=== PATIENT | male | born 1960 | race Caucasian/White ===

== ENCOUNTER 2020-06-16 16:41 | Emergency (ER) | payer MEDICAID, SELFPAY ==
[2020-06-16 16:43] VITALS: BP 155/88; PULSE 79; RESP 18; TEMP 36.8; O2SAT 98; BMI 40.8
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
--- NOTE | 2020-06-16 17:20 | EKG12_ITS ---
Test Reason : TRAUMA Blood Pressure : / mmHG Vent. Rate : 077 BPM Atrial Rate : 077 BPM P-R Int : 182 ms QRS Dur : 100 ms QT Int : 428 ms P-R-T Axes : 051 -20 054 degrees QTc Int : 484 ms Normal sinus rhythm Possible Left atrial enlargement Prolonged QT Abnormal ECG Confirmed by PAULINA RAMIREZ, MAMADOU ([id number]), make up editor JOSE SALAMANCA ([id number]) on 06/17/2020 9:24:05 AM Referred By: MARCELLO Confirmed By:MAMADOU GALLARDO MD
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
[2020-06-16 17:34] LABS: Absolute Lymphocyte Count 1.98 X10^3/uL (0.83-4.51); Absolute Neutrophil Count 4.5 X10^3/uL (2.0-7.7); Basophil# 0.05 X10^3/uL; Basophil% 0.7 % (0-1); Eosinophil# 0.23 X10^3/uL; Eosinophils% 3.1 % (0-5); Hematocrit 44.8 % (40-54); Hemoglobin 14.7 g/dL (13.0-16.5); Lymphocyte # 1.98 X10^3/ul (4.0); Lymphocyte % 26.8 % (19-41); Mean Corp Hgb Conc 32.8 g/dL (32-36); Mean Corpuscular Hgb 29.6 pg (27.0-32.0); Mean Corpuscular Volume 90.1 fL (80-94); Monocyte# 0.59 X10^3/uL; NRBC Flagged by Analyzer 0 % (0-5); Platelet Count 247 K/mm3 (150-450); RBC Distribution Width SD 42.3 fl (35.1-43.9); Red Blood Count 4.97 M/mm3 (4.6-6.2); White Blood Count 7.4 K/mm3 (4.4-11.0)
[2020-06-16 17:42] VITALS: BP 145/77; PULSE 75; RESP 20; O2SAT 97
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
[2020-06-16 18:00] VITALS: RESP 18
[2020-06-16 18:38] LABS: ALB/GLOB Ratio 1.1 RATIO (0.9-2.4); AST(SGOT) 14 U/L (15-37); Alanine Aminotransfer ALT/SGPT 26 U/L (16-61); Albumin, Serum 3.7 g/dL (3.2-5.0); Alkaline Phosphatase 74 U/L (45-117); Anion Gap 4 (5-15); BUN 12 mg/dL (7-18); BUN/Creat Ratio 10.5 RATIO (10-20); Chloride 106 mmol/L (98-107); Creatinine, Serum 1.14 mg/dL (0.70-1.30); EST Glomerular Filtration Rate 69 mL/min (>60); Est Glom Filt Rate - Afr Amer 84 mL/min (>60); Globulin 3.4 g/dL (2.2-4.2); Glucose 91 mg/dL (74-106); Lipase 88 U/L (73-393); Potassium 3.6 mmol/L (3.5-5.1); Protein, Total 7.1 g/dL (6.4-8.2); Sodium Level 140 mmol/L (136-145)
[2020-06-16] MEDS: Morphine 4 MG/ML Syringe IV (18:45)
[2020-06-16] MEDS: Ondansetron 4 MG/2 ML Vial IV (18:45)
[2020-06-16 19:00] VITALS: BP 160/89; PULSE 78; RESP 18; O2SAT 94
[2020-06-16 19:20] VITALS: BP 147/86; PULSE 78; RESP 16; O2SAT 97
[2020-06-16] MEDS: HYDROmorphone 1 MG/ML Syringe IV (19:49)
== END 2020-06-16 19:54 | disposition home or self-care (01) ==
PROVIDERS: Emergency Provider Emergency Medicine
DX: S20.219A Contusion of unspecified front wall of thorax, initial encounter (principal); S60.511A Abrasion of right hand, initial encounter; Y92.410 Unspecified street and highway as the place of occurrence of the external cause; V49.40XA Driver injured in collision with unspecified motor vehicles in traffic accident, initial encounter; Y93.9 Activity, unspecified; Y99.9 Unspecified external cause status; E78.00 Pure hypercholesterolemia, unspecified; I10 Essential (primary) hypertension; I25.10 Atherosclerotic heart disease of native coronary artery without angina pectoris; Z86.73 Personal history of transient ischemic attack (TIA), and cerebral infarction without residual deficits; Z87.891 Personal history of nicotine dependence
CPT/HCPCS: 70450; 71260; 72125; 73130; 74177; 80053; 83690; 85025; 85610; 93005; 96374; 96375; 99285; Q9967; A4216; J2405